=== PATIENT | female | born 2000 | race Caucasian/White ===

== ENCOUNTER 2021-06-04 09:28 | Emergency (ER) | payer OTHER ==
[~2021-06-04] VITALS: Ht 162.6 cm; Wt 61.2 kg
== END 2021-06-04 10:05 | disposition home or self-care (01) ==
LOC: EDBD 09:28 → ER 09:28
DX: S29.012A Strain of muscle and tendon of back wall of thorax, initial encounter (principal); V47.6XXA Car passenger injured in collision with fixed or stationary object in traffic accident, initial encounter; Z88.8 Allergy status to other drugs, medicaments and biological substances
CPT/HCPCS: 99284